=== PATIENT | male | born 1955 | race Two or more races ===

== ENCOUNTER 2024-04-10 09:04 | Outpatient (CLI) | payer OTHER | END 2024-04-10 09:10 | disposition home or self-care (01) | LOC: SONOGRAMA 09:04 | PROVIDERS: ATTEND Pathology Anatomic Pathology & Clinical Pathology | DX: E04.2 Nontoxic multinodular goiter (principal); D34 Benign neoplasm of thyroid gland; E07.89 Other specified disorders of thyroid ==

== ENCOUNTER 2024-05-16 12:15 | Inpatient (IN) | payer OTHER ==
[~2024-05-16] VITALS: Ht 175.3 cm; Wt 74.4 kg
[2024-05-16 14:10] LABS: URINE APPEARANCE Clear; URINE BILIRRUBIN Negative (NEGATIVE); URINE BLOOD Negative; URINE COLOR Yellow; URINE GLUCOSE Negative (NEGATIVE); URINE KETONE Negative (NEGATIVE); URINE LEUKOCYTE Negative; URINE NITRATE Negative; URINE PROTEIN Negative (NEGATIVE); URINE UROBILINOGEN 0.2 E.U./dl
[2024-05-16 14:17] LABS: URINE BACTERIA 1.2 uL (0.0-1933); URINE RBC 0.7 uL (0.0-20.8); URINE WBC 0 uL (0.0-23.2)
[2024-05-16] MEDS ORDERED: AVAPRO300 MG PO (15:08)
[2024-05-16 15:09] VITALS: BP 138/85
[2024-05-16] MEDS ORDERED: ROSUVASTATIN CA10 MG PO (15:09)
[2024-05-16] MEDS ORDERED: TOPROL XL25 M1 PO (15:09)
[2024-05-26] MEDS ORDERED: DEXAMETHASONE SODIUM PHOSPHATE 4 MG/ML VIAL ONE (07:16)
[2024-05-26] MEDS ORDERED: METOCLOPRAMIDE HCL 5 MG/ML VIAL ONE (08:23)
[2024-05-26] MEDS ORDERED: FAMOTIDINE/PF 20 MG/2 ML VIAL ONE (08:24)
[2024-05-26] MEDS ORDERED: ONDANSETRON HCL 2 MG/ML VIAL IV PRN (10:00)
[2024-05-26] MEDS ORDERED: ENALAPRILAT DIHYDRATE 1.25 MG/ML VIAL IV PRN (10:00)
[2024-05-26] MEDS ORDERED: SODIUM CHLORIDE 0.45 % 1,000 ML IV SCH (10:00)
[2024-05-26] MEDS ORDERED: MORPHINE SULFATE 4 MG/ML VIAL IV ONE (10:05)
[2024-05-26] MEDS ORDERED: hydrALAZINE HCL 20 MG VIAL ONE (11:10)
[2024-05-26] MEDS ORDERED: hydrALAZINE HCL 20 MG VIAL IV PRN ×2 (11:30→12:15)
[2024-05-26 16:00] VITALS: BP 134/82; O2SAT 97
[2024-05-26] MEDS ORDERED: TRAMADOL HCL 50 MG TABLET PO SCH (17:00)
[2024-05-26] MEDS ORDERED: DIPHENHYDRAMINE HCL 12.5 MG/5 ML BLIST.PACK PO SCH (17:00)
[2024-05-26] MEDS ORDERED: MAG HYDROX/ALUMINUM HYD/SIMETH 30 ML BLIST.PACK PO SCH (17:00)
[2024-05-26] MEDS ORDERED: ACETAMINOPHEN 500 MG GEL..CAP PO SCH (17:00)
[2024-05-26] MEDS ORDERED: LIDOCAINE HCL 120 ML ML MM SCH (21:00)
[2024-05-26] MEDS ORDERED: PANTOPRAZOLE SODIUM 40 MG/VIAL VIAL IV PUSH SCH (21:00)
[2024-05-26] MEDS ORDERED: LIDOCAINE HCL VISCOUS 20MG/ML BLIST 15ML MM SCH (21:00)
[2024-05-26] MEDS ORDERED: CLONAZEPAM 0.5 MG TABLET PO ONE (22:30)
[2024-05-27 02:03] VITALS: BP 122/72; O2SAT 93
[2024-05-27 08:00] VITALS: BP 149/85; O2SAT 98
[2024-05-27] MEDS ORDERED: CYCLOBENZAPRINE HCL 5 MG TABLET PO SCH (09:00)
[2024-05-27] MEDS ORDERED: IRBESARTAN 300 MG TABLET PO SCH (09:00)
[2024-05-27] MEDS ORDERED: METOPROLOL SUCCINATE 25 MG TAB.SR.24H PO SCH (09:00)
[2024-05-27] MEDS ORDERED: FAMOTIDINE/PF 20 MG/2 ML VIAL IV SCH (09:00)
== END 2024-05-27 14:06 | disposition home or self-care (01) | DRG 627 ==
LOC: O/R 05-26 05:50 → SURH 05-26 09:45
PROVIDERS: ADMIT Surgery; ATTEND Surgery
PROC: 07B20ZZ Excision of Left Neck Lymphatic, Open Approach (ICD-10-PCS; 2024-05-26)
PROC: 0GTG0ZZ Resection of Left Thyroid Gland Lobe, Open Approach (ICD-10-PCS; principal; 2024-05-26 09:45)
DX: D34 Benign neoplasm of thyroid gland (principal); E04.2 Nontoxic multinodular goiter